=== PATIENT | female | born 1955 | race Caucasian/White ===

== ENCOUNTER 2018-04-04 09:09 | Inpatient (IN) | payer MEDICARE ==
[2018-04-04] MEDS ORDERED: NITROGLYCERIN-D5W PMX 50 MG in DEXTROSE/WATER 1 250ML.BAG IV STA (09:18)
[2018-04-04] MEDS ORDERED: FUROSEMIDE 10 MG/ML 4 ML VIAL IV STA (09:18)
[2018-04-04] MEDS ORDERED: NITROGLYCERIN SL TABS 0.4 MG TAB SUBLINGUAL STA (09:19)
--- NOTE | 2018-04-04 09:27 | ED ---
General Adult HPI - General Chief complaint: Shortness of Breath Stated complaint: SOB Source: patient, EMS Mode of arrival: EMS Limitations: no limitations - History of Present Illness Initial comments: Dictation was produced using Oculus360 dictation software. please excuse any grammatical, word or spelling errors. Chief Complaint: 62-year-old female presents via EMS for acute onset dyspnea. History of Present Illness: Patient is 62-year-old female who was at the [facility] today when she began experiencing acute shortness of breath. Patient has a past medical history of HPI. Patient is severely short of breath and is unable to provide detailed HPI at this time. She has history of congestive heart failure and CABG. Her rhic systems safety engineer she reports is Dr. Herrera. Patient has not been under hospital in the past. Aggressive medical history shows diabetes, dyslipidemia, hypertension, IA, heart failure. Pacer. EMS reports that patient was given 1 sublingual nitroglycerin started on noninvasive ventilation. She did report improvement with an IV. Patient denies any chest pain or pain symptoms. That she felt within normal limits early this morning. The ROS documented in this emergency department record has been reviewed and confirmed by me. Those systems with pertinent positive or negative responses have been documented in the HPI. All other systems are other negative and/or noncontributory. - Related Data Home Medications Medication Instructions Recorded Confirmed Carvedilol [Coreg] 12.5 mg PO BID 04/04/18 04/04/18 Digoxin [Lanoxin] 125 mcg PO DAILY 04/04/18 04/04/18 Furosemide [Lasix] 40 mg PO DAILY 04/04/18 04/04/18 Insulin Detemir [Levemir Flextouch] 76 units SQ HS 04/04/18 04/04/18 Insulin NPH Human Isophane 20 unit SQ AC-TID 04/04/18 04/04/18 [humuLIN N Kwikpen] Lisinopril [Zestril] 2.5 mg PO DAILY 04/04/18 04/04/18 Multivitamins, Thera [Multivitamin 1 tab PO DAILY 04/04/18 04/04/18 (formulary)] Kingsland-3 Fatty Acids [Kingsland-3] 1,000 mg PO BID 04/04/18 04/04/18 Potassium Chloride ER [K-Dur 20] 20 meq PO DAILY 04/04/18 04/04/18 Warfarin [Coumadin] 5 mg PO SUTUWEFRSA 04/04/18 04/04/18 Warfarin [Coumadin] 7.5 mg PO MOTH 04/04/18 04/04/18 Allergies Allergy/AdvReac Type Severity Reaction Status Date / Time metformin AdvReac Nausea & Verified 04/04/18 10:38 Vomiting & Diarrhea Pgcrzdp-Ger-Zpy Reductase AdvReac Unknown Verified 04/04/18 10:38 Inhibitor Review of Systems ROS Statement: Those systems with pertinent positive or pertinent negative responses have been documented in the HPI. ROS Other: All systems not noted in ROS Statement are negative. Past Medical History Past Medical History: Heart Failure, Diabetes Mellitus, Hyperlipidemia, Hypertension, Myocardial Infarction (IA) Additional Past Medical History / Comment(s): AICD History of Any Multi-Drug Resistant Organisms: None Reported Past Surgical History: AICD, Coronary Bypass/CABG Past Psychological History: No Psychological Hx Reported Smoking Status: Former smoker Past Alcohol Use History: None Reported Past Drug Use History: None Reported General Exam - General Exam Comments Initial Comments: PHYSICAL EXAM: General Impression: Alert and oriented x3, distress secondary to dyspnea HEENT: Normocephalic atraumatic, extra-ocular movements intact, pupils equal and reactive to light bilaterally, mucous membranes moist. Cardiovascular: Heart regular rate and rhythm, S1&S2 audible, no murmurs, rubs or gallops Chest: Bilateral lung crackles Abdomen: Bowel sounds present, abdomen soft, non-tender, non-distended, no organomegaly Musculoskeletal: Pulses present and equal in all extremities, 1+ pitting edema Motor: Power 5/5 bilaterally, no focal deficits noted Neurological: CN II-XII grossly intact, no focal motor or sensory deficits noted Skin: Intact with no visualized rashes Limitations: no limitations Course Vital Signs 04/04/18 04/04/18 04/04/18 09:11 09:23 09:35 Temperature 97.8 F Pulse Rate 108 H 90 Respiratory 26 H 20 Rate Blood Pressure 173/77 129/62 O2 Sat by Pulse 87 L 93 L Oximetry 04/04/18 04/04/18 09:39 10:00 Temperature Pulse Rate 82 Respiratory 22 16 Rate Blood Pressure 145/64 O2 Sat by Pulse 97 Oximetry Medical Decision Making - Medical Decision Making ED course: 62-year-old female with multiple cardiac comorbidities presents with acute onset dyspnea. Vital signs upon arrival shows heart rate of 108, respiratory rate of 26, 90% on BiPAP. Patient presents in severe acute respiratory distress. She is tolerating BiPAP. Click or presentation consistent with acute CHF exacerbation. EKG was obtained showing paced rhythm with ST depressions in the anterior precordial leads. There is high suspicion of sgarbossa criteria being met. No old EKG for comparison Discussed patient case with Dr. Page who is being faxed EKG. Patient given repeat sublingual nitroglycerin started on nitroglycerin drip. Discussed EKG and clinical presentation of patient with Dr. Page. He reviewed EKG and does not believe that EKG warrants Film Cutter activation at this time. Patient reevaluated after repeat sublingual nitroglycerin, several minutes of BiPAP and Lasix with improved respiratory status.CBC was obtained showing leukocytosis of 13.9 likely secondary to stress. INR is therapeutic at 2.5. Blood gases shows pH of 7.27 with a pCO2 of 52 with a bicarb of 23. Blood gas consistent with respiratory acidosis. Metabolic panel shows no anion gap. Glucose of 257. Cardiac enzymes are negative. She given aspirin, 40 mg of Lasix. Patient is reevaluated after several minutes on nitroglycerin drip. Patient medical status is dramatically improved. Trial of BiPAP was performed in the ER. Patient was observed in emergency department on BiPAP. She appears well. She is having full conversations and he will complete sentences. Patient still has some cracking to her lungs however she appears well. We will have patient admitted for gentle diuresis, blood pressure up to position the medical monitoring. Cardiology to be put on consult. EKG Interpretation: A 12 lead EKG was obtained. It was interpreted by myself and attending physician. There is a P wave before every QRS complex. Rate is 101. Rhythm is paced rhythm, QRS 1:30, QTc 552. There appears to be minimal ST depressions in anterior precordial leads especially in V2 there is some concern of sgarbossa criteria - Lab Data Result diagrams: 04/04/18 09:15 04/04/18 09:15 Lab Results 04/04/18 04/04/18 04/04/18 Range/Units 09:15 09:15 09:15 WBC 13.9 H (3.8-10.6) k/uL RBC 5.30 (3.80-5.40) m/uL Hgb 15.0 (11.4-16.0) gm/dL Hct 47.9 H (34.0-46.0) % MCV 90.4 (80.0-100.0) fL MCH 28.3 (25.0-35.0) pg MCHC 31.3 (31.0-37.0) g/dL RDW 13.9 (11.5-15.5) % Plt Count 279 (150-450) k/uL Neutrophils % (Manual) 40 % Band Neutrophils % 1 % Lymphocytes % (Manual) 48 % Monocytes % (Manual) 10 % Eosinophils % (Manual) 1 % Neutrophils # (Manual) 5.60 (1.3-7.7) k/uL Lymphocytes # (Manual) 6.67 H (1.0-4.8) k/uL Monocytes # (Manual) 1.39 H (0-1.0) k/uL Eosinophils # (Manual) 0.14 (0-0.7) k/uL Nucleated RBCs 0 (0-0) /100 WBC Toxic Granulation Present Poikilocytosis (manual Present Anisocytosis (manual) Present PT (9.0-12.0) sec INR (<1.2) APTT (22.0-30.0) sec D-Dimer (<0.60) mg/L FEU VBG pH (7.31-7.41) VBG pCO2 (37-51) mmHg VBG HCO3 (24-28) mmol/L Sodium 138 (137-145) mmol/L Potassium 4.5 (3.5-5.1) mmol/L Chloride 102 (98-107) mmol/L Carbon Dioxide 20 L (22-30) mmol/L Anion Gap 16 mmol/L BUN 17 (7-17) mg/dL Creatinine 0.97 (0.52-1.04) mg/dL Est GFR (CKD-EPI)AfAm 72 (>60 ml/min/1.73 sqM) Est GFR (CKD-EPI)NonAf 62 (>60 ml/min/1.73 sqM) Glucose 257 H (74-99) mg/dL Calcium 9.4 (8.4-10.2) mg/dL Magnesium 1.8 (1.6-2.3) mg/dL Total Bilirubin 0.6 (0.2-1.3) mg/dL AST 43 H (14-36) U/L ALT 43 (9-52) U/L Alkaline Phosphatase 115 (38-126) U/L Total Creatine Kinase 173 H (30-135) U/L CK-MB (CK-2) 3.2 H* (0.0-2.4) ng/mL CK-MB (CK-2) Rel Index 1.8 Troponin I 0.014 (0.000-0.034) ng/mL NT-Pro-B Natriuret Pep pg/mL Total Protein 7.8 (6.3-8.2) g/dL Albumin 4.2 (3.5-5.0) g/dL 04/04/18 04/04/18 04/04/18 Range/Units 09:15 09:15 09:15 WBC (3.8-10.6) k/uL RBC (3.80-5.40) m/uL Hgb (11.4-16.0) gm/dL Hct (34.0-46.0) % MCV (80.0-100.0) fL MCH (25.0-35.0) pg MCHC (31.0-37.0) g/dL RDW (11.5-15.5) % Plt Count (150-450) k/uL Neutrophils % (Manual) % Band Neutrophils % % Lymphocytes % (Manual) % Monocytes % (Manual) % Eosinophils % (Manual) % Neutrophils # (Manual) (1.3-7.7) k/uL Lymphocytes # (Manual) (1.0-4.8) k/uL Monocytes # (Manual) (0-1.0) k/uL Eosinophils # (Manual) (0-0.7) k/uL Nucleated RBCs (0-0) /100 WBC Toxic Granulation Poikilocytosis (manual Anisocytosis (manual) PT 22.8 H (9.0-12.0) sec INR 2.5 H (<1.2) APTT 31.9 H (22.0-30.0) sec D-Dimer (<0.60) mg/L FEU VBG pH 7.27 L (7.31-7.41) VBG pCO2 52 H (37-51) mmHg VBG HCO3 23 L (24-28) mmol/L Sodium (137-145) mmol/L Potassium (3.5-5.1) mmol/L Chloride (98-107) mmol/L Carbon Dioxide (22-30) mmol/L Anion Gap mmol/L BUN (7-17) mg/dL Creatinine (0.52-1.04) mg/dL Est GFR (CKD-EPI)AfAm (>60 ml/min/1.73 sqM) Est GFR (CKD-EPI)NonAf (>60 ml/min/1.73 sqM) Glucose (74-99) mg/dL Calcium (8.4-10.2) mg/dL Magnesium (1.6-2.3) mg/dL Total Bilirubin (0.2-1.3) mg/dL AST (14-36) U/L ALT (9-52) U/L Alkaline Phosphatase (38-126) U/L Total Creatine Kinase (30-135) U/L CK-MB (CK-2) (0.0-2.4) ng/mL CK-MB (CK-2) Rel Index Troponin I (0.000-0.034) ng/mL NT-Pro-B Natriuret Pep 448 pg/mL Total Protein (6.3-8.2) g/dL Albumin (3.5-5.0) g/dL 04/04/18 Range/Units 09:15 WBC (3.8-10.6) k/uL RBC (3.80-5.40) m/uL Hgb (11.4-16.0) gm/dL Hct (34.0-46.0) % MCV (80.0-100.0) fL MCH (25.0-35.0) pg MCHC (31.0-37.0) g/dL RDW (11.5-15.5) % Plt Count (150-450) k/uL Neutrophils % (Manual) % Band Neutrophils % % Lymphocytes % (Manual) % Monocytes % (Manual) % Eosinophils % (Manual) % Neutrophils # (Manual) (1.3-7.7) k/uL Lymphocytes # (Manual) (1.0-4.8) k/uL Monocytes # (Manual) (0-1.0) k/uL Eosinophils # (Manual) (0-0.7) k/uL Nucleated RBCs (0-0) /100 WBC Toxic Granulation Poikilocytosis (manual Anisocytosis (manual) PT (9.0-12.0) sec INR (<1.2) APTT (22.0-30.0) sec D-Dimer 0.56 (<0.60) mg/L FEU VBG pH (7.31-7.41) VBG pCO2 (37-51) mmHg VBG HCO3 (24-28) mmol/L Sodium (137-145) mmol/L Potassium (3.5-5.1) mmol/L Chloride (98-107) mmol/L Carbon Dioxide (22-30) mmol/L Anion Gap mmol/L BUN (7-17) mg/dL Creatinine (0.52-1.04) mg/dL Est GFR (CKD-EPI)AfAm (>60 ml/min/1.73 sqM) Est GFR (CKD-EPI)NonAf (>60 ml/min/1.73 sqM) Glucose (74-99) mg/dL Calcium (8.4-10.2) mg/dL Magnesium (1.6-2.3) mg/dL Total Bilirubin (0.2-1.3) mg/dL AST (14-36) U/L ALT (9-52) U/L Alkaline Phosphatase (38-126) U/L Total Creatine Kinase (30-135) U/L CK-MB (CK-2) (0.0-2.4) ng/mL CK-MB (CK-2) Rel Index Troponin I (0.000-0.034) ng/mL NT-Pro-B Natriuret Pep pg/mL Total Protein (6.3-8.2) g/dL Albumin (3.5-5.0) g/dL Disposition Clinical Impression: Congestive heart failure Disposition: ADMITTED IP TO THIS HOSP Condition: Good Referrals: None,Stated [Primary Care Provider] - 1-2 days Decision Time: 11:10
[2018-04-04 09:34] LABS: VBG PH 7.27 (7.31-7.41)
[2018-04-04 09:42] LABS: INR 2.5 (<1.2); Partial Thromboplastin Time 31.9 sec (22.0-30.0); Prothrombin Time 22.8 sec (9.0-12.0)
[2018-04-04 09:45] LABS: Albumin 4.2 g/dL (3.5-5.0); Calcium 9.4 mg/dL (8.4-10.2); Magnesium 1.8 mg/dL (1.6-2.3); Potassium 4.5 mmol/L (3.5-5.1); Total Bilirubin 0.6 mg/dL (0.2-1.3); Total Protein 7.8 g/dL (6.3-8.2)
[2018-04-04 09:57] LABS: HCT 47.9 % (34.0-46.0); MCH 28.3 pg (25.0-35.0); MCHC 31.3 g/dL (31.0-37.0); MCV 90.4 fL (80.0-100.0); Mean Platelet Volume 8.1; Platelet Count 279 k/uL (150-450); RDW 13.9 % (11.5-15.5); WBC 13.9 k/uL (3.8-10.6)
--- NOTE | 2018-04-04 10:14 | XR ---
EXAMINATION TYPE: XR chest 1V portable DATE OF EXAM: 04/04/2018 HISTORY: Shortness of breath. COMPARISON: None. TECHNIQUE: Single view of the chest is submitted. FINDINGS: Demonstrated are scattered senescent parenchymal change. There is no evidence for focal infiltrate. The heart is stable. Dual-lead pacer is in place. Hilar and mediastinal structures are within normal limits. Degenerative changes are seen of the dorsal spine. IMPRESSION: 1. Chronic changes without evidence for acute pulmonary disease.
[2018-04-04 10:15] LABS: Troponin I 0.014 ng/mL (0.000-0.034)
[2018-04-04 10:17] LABS: Creatine Kinase MB 3.2 ng/mL (0.0-2.4)
[2018-04-04 10:37] LABS: Band Neutrophils % 1 %; Eosinophils # (M) 0.14 k/uL (0-0.7); Lymphocytes # (M) 6.67 k/uL (1.0-4.8); Monocytes # (M) 1.39 k/uL (0-1.0); Neutrophils % (M) 40 %; Nucleated Red Blood Cells 0 /100 WBC (0-0); Total Cells Counted 100
[2018-04-04 10:38] LABS: Toxic Granulation Present
[2018-04-04 10:39] LABS: Anisocytosis (M) Present; Poikilocytosis (M) Present
[2018-04-04] MEDS ORDERED: NITROGLYCERIN OINT 1 INCH/GM PACKET TOPICAL STA (10:51)
[2018-04-04] MEDS ORDERED: NALOXONE 0.4 MG/ML 1 ML VIAL IV PRN (11:10)
--- NOTE | 2018-04-04 11:34 | P.HPIM ---
History of Present Illness H&P Date: 04/04/18 Chief Complaint: Shortness of breath The patient is a 62-year-old female with a past medical history of congestive heart failure of unknown type, flash pulmonary edema, CO, type 2 diabetes, pacer who presents to the ER via EMS with chief complaint of shortness of air. 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 Apparently on arrival the patient was in respiratory distress with a significantly elevated blood pressure systolically over 200 with reported borderline saturations in the upper 80s to low 90s. She was placed on BiPAP and given nitroglycerin on route. The patient denied any chest pain, diaphoresis nausea or vomiting, or lower extremity swelling. She denied any recent illness, fevers chills or night sweats. Reports her last hospitalization over 18 months ago. Reports that she has had flash pulmonary edema previously and has been on nitro drip and in the ICU. She usually goes to [facility]. In the ER the patient was noted to have elevated blood pressure systolically in the 170s, she was also noted to be hypoxic on room air at 87% and was continued on BiPAP with good saturations. She was given a dose of Lasix and started on a nitroglycerin drip. Chest x-ray showed no acute cardiopulmonary etiology, BNP was mildly elevated 448 and d-dimer was negative at 0.56. Troponins were negative and EKG showed a paced rhythm with some minimal ST depression in anterior precordial leads. ABG pH of 7.27 with a pCO2 of 52 with a bicarb of 23. Leukocytosis of 14, INR 2.5 Review of Systems Pertinent positives and negatives as discussed in HPI, complete review of systems was performed and all other systems are negative Past Medical History Past Medical History: Heart Failure, Diabetes Mellitus, Hyperlipidemia, Hypertension, Myocardial Infarction (CO) Additional Past Medical History / Comment(s): AICD History of Any Multi-Drug Resistant Organisms: None Reported Past Surgical History: AICD, Coronary Bypass/CABG Past Psychological History: No Psychological Hx Reported Smoking Status: Former smoker Past Alcohol Use History: None Reported Past Drug Use History: None Reported Medications and Allergies Home Medications Medication Instructions Recorded Confirmed Type Carvedilol [Coreg] 12.5 mg PO BID 04/04/18 04/04/18 History Digoxin [Lanoxin] 125 mcg PO DAILY 04/04/18 04/04/18 History Furosemide [Lasix] 40 mg PO DAILY 04/04/18 04/04/18 History Insulin Detemir [Levemir Flextouch] 76 units SQ HS 04/04/18 04/04/18 History Insulin NPH Human Isophane 20 unit SQ AC-TID 04/04/18 04/04/18 History [humuLIN N Kwikpen] Lisinopril [Zestril] 2.5 mg PO DAILY 04/04/18 04/04/18 History Multivitamins, Thera [Multivitamin 1 tab PO DAILY 04/04/18 04/04/18 History (formulary)] Pride-3 Fatty Acids [Pride-3] 1,000 mg PO BID 04/04/18 04/04/18 History Potassium Chloride ER [K-Dur 20] 20 meq PO DAILY 04/04/18 04/04/18 History Warfarin [Coumadin] 5 mg PO SUTUWEFRSA 04/04/18 04/04/18 History Warfarin [Coumadin] 7.5 mg PO MOTH 04/04/18 04/04/18 History Allergies Allergy/AdvReac Type Severity Reaction Status Date / Time metformin AdvReac Nausea & Verified 04/04/18 10:38 Vomiting & Diarrhea Umglqbh-Lbg-Shl Reductase AdvReac Unknown Verified 04/04/18 10:38 Inhibitor Physical Exam Vitals: Vital Signs Temp Pulse Resp BP Pulse Ox 04/04/18 10:00 82 16 145/64 97 04/04/18 09:39 22 04/04/18 09:35 90 20 129/62 93 L 04/04/18 09:23 97.8 F 04/04/18 09:11 108 H 26 H 173/77 87 L Intake and Output 04/03/18 04/04/18 04/04/18 22:59 06:59 14:59 Other: Weight 81.647 kg Constitutional: No acute distress, conversant, pleasant Eyes: Anicteric sclerae, moist conjunctiva, no lid-lag, PERRLA ENMT: NC/AT,Oropharynx clear, no erythema, exudates Neck:Supple, FROM, no masses, or JVD, No carotid bruits; No thyromegaly Lungs: Clear to auscultation, Clear to percussion, Normal respiratory effort, no accessory muscle use Cardiovascular: Heart regular in rate and rhythm, No murmurs, gallops, or rubs no peripheral edema Abdominal: Soft Nontender, nom distended, no guarding, no rebound or rigidity, Normoactive bowel sounds No hepatomegaly, No splenomegaly, No palpable mass No abdominal wall hernia noted Skin: Normal temperature, tone, texture, turgor, No induration No subcutaneous nodules, No rash, lesions, No ulcers Extremities:No digital cyanosis No clubbing, Pedal pulses intact and symmetrical Radial pulses intact and symmetrical Normal gait and station, No calf tenderness Psychiatric: Alert and oriented to person, place and time, Appropriate affect Intact judgement Neuro: Muscles Strength 5/5 in all 4 extremities, Sensation to light touch grossly present throughout, Cranial nerves II-XII grossly intact. No focal sensory deficits Results CBC & Chem 7: 04/04/18 09:15 04/04/18 09:15 Labs: Abnormal Lab Results - Last 24 Hours (Table) 04/04/18 04/04/18 04/04/18 Range/Units 09:15 09:15 09:15 WBC 13.9 H (3.8-10.6) k/uL Hct 47.9 H (34.0-46.0) % Lymphocytes # (Manual) 6.67 H (1.0-4.8) k/uL Monocytes # (Manual) 1.39 H (0-1.0) k/uL PT (9.0-12.0) sec INR (<1.2) APTT (22.0-30.0) sec VBG pH (7.31-7.41) VBG pCO2 (37-51) mmHg VBG HCO3 (24-28) mmol/L Carbon Dioxide 20 L (22-30) mmol/L Glucose 257 H (74-99) mg/dL AST 43 H (14-36) U/L Total Creatine Kinase 173 H (30-135) U/L CK-MB (CK-2) 3.2 H* (0.0-2.4) ng/mL 04/04/18 04/04/18 Range/Units 09:15 09:15 WBC (3.8-10.6) k/uL Hct (34.0-46.0) % Lymphocytes # (Manual) (1.0-4.8) k/uL Monocytes # (Manual) (0-1.0) k/uL PT 22.8 H (9.0-12.0) sec INR 2.5 H (<1.2) APTT 31.9 H (22.0-30.0) sec VBG pH 7.27 L (7.31-7.41) VBG pCO2 52 H (37-51) mmHg VBG HCO3 23 L (24-28) mmol/L Carbon Dioxide (22-30) mmol/L Glucose (74-99) mg/dL AST (14-36) U/L Total Creatine Kinase (30-135) U/L CK-MB (CK-2) (0.0-2.4) ng/mL Assessment and Plan (1) Acute respiratory failure with hypoxia Current Visit: Yes Status: Acute Code(s): J96.01 - ACUTE RESPIRATORY FAILURE WITH HYPOXIA SNOMED Code(s): 56342394 (2) Hypertensive emergency Current Visit: Yes Status: Acute Code(s): I16.1 - HYPERTENSIVE EMERGENCY SNOMED Code(s): 351169497543139 (3) CHF exacerbation Current Visit: Yes Status: Acute Code(s): I50.9 - HEART FAILURE, UNSPECIFIED SNOMED Code(s): 46352162 (4) Type 2 diabetes mellitus with hyperglycemia Current Visit: Yes Status: Acute Code(s): E11.65 - TYPE 2 DIABETES MELLITUS WITH HYPERGLYCEMIA SNOMED Code(s): 972555234409283 (5) Leukocytosis Current Visit: Yes Status: Acute Code(s): D72.829 - ELEVATED WHITE BLOOD CELL COUNT, UNSPECIFIED SNOMED Code(s): 682804099 (6) Hyperlipidemia Current Visit: Yes Status: Acute Code(s): E78.5 - HYPERLIPIDEMIA, UNSPECIFIED SNOMED Code(s): 69934493 Plan: The patient is admitted anticipated greater than 2 midnight stay with acute respiratory failure with hypoxia, hypertensive emergency with concern for impending CHF exacerbation unknown type after presenting with acute dyspnea and hypoxia. She was started on nitroglycerin drip blood pressures are now as much improved we'll try to wean her off and transition her to oral antihypertensive regimen. Her respiratory status is also improved we'll attempt to wean her off BiPAP as she is transitioned to selective unit. The patient is afebrile but does have a leukocytosis we'll attempt to get urinalysis, blood culture, we'll hold off on antibiotics at this time and monitor closely. We'll resume her home Lasix, coreg, digoxin and Coumadin regimen, insulin regimen with Accu- Cheks and correctional scale coverage. Will check echocardiogram consult cardiology for further recommendations and continue to follow her clinical course CODE STATUS Full code Medical decision maker : self/ Discussed with patient/ and son Anticipate discharge to home in 1-2 days
[2018-04-04 12:03] LABS: Appearance,Urine Clear (Clear); Bilirubin,Urine Negative (Negative); Blood,Urine Negative (Negative); Color,Urine Light Yellow; Glucose,Urine (UA) Negative (Negative); Ketones,Urine Negative (Negative); Leukocyte Esterase,Urine Negative (Negative); Nitrite,Urine Negative (Negative); PH, Urine 5.5 (5.0-8.0); Protein,Urine Trace (Negative); Specific Gravity,Urine 1.005 (1.001-1.035); Urobilinogen,Urine <2.0 mg/dL (<2.0)
[2018-04-04 12:54] LABS: Glucose,Whole Blood 185 mg/dL (75-99)
[2018-04-04] MEDS: INSULIN ASPART 100 UNIT/ML 1 ML 10 ML VIAL SQ SCH ×3 (13:21→21:23)
[2018-04-04] MEDS: INSULIN NPH 300 UNIT/3 ML VIAL SQ SCH ×2 (13:22→17:12)
--- NOTE | 2018-04-04 15:30 | P.CRDCN ---
History of Present Illness Consult date: 04/04/18 History of present illness: This is a 62-year-old female with history of ischemic heart disease with previous bypass surgery, probable cardiomyopathy with history of biventricular pacemaker implantation with a defibrillator, who came to [place] to the [facility] on jury duty. Apparently patient became short of breath and went to sit in the library. This shortness of breath did not improve and patient called paramedics and came to the hospital. Patient was extremely short of breath on arrival. Chest x-ray showed some chronic changes. Her BNP is not elevated. However, patient responded well to IV Lasix. Patient blood pressure was also very high. IV nitroglycerin dropped her blood pressure to normal range. Currently, patient is off nitroglycerin. She seemed to be comfortable, sleeping flat in bed. No evidence of JVD. Lungs appeared to be clear. Patient is slightly tachycardic. EKG showed evidence of biventricular pacemaker rhythm. We'll continue current medical therapy. Echocardiogram is done. We'll also follow Cardec enzymes studies Review of Systems As per the chart Past Medical History Past Medical History: Atrial Fibrillation, Heart Failure, Diabetes Mellitus, Hyperlipidemia, Hypertension, Myocardial Infarction ([place]), Osteoarthritis (OA) Additional Past Medical History / Comment(s): Cardiomyopathy with AICD/pacer, inferior wall [place] in 2007-no chest pain-felt very tired, paroxysmal Afib, IDDM type II, diabetic neuropathy bilateral feet, arthritis bilateral hands/fingers/ wrists and R hip, past L patellar fracture, past R wrist fracture. Last Myocardial Infarction Date:: 2007 History of Any Multi-Drug Resistant Organisms: None Reported Past Surgical History: AICD, Coronary Bypass/CABG, Heart Catheterization, Orthopedic Surgery, Tubal Ligation Additional Past Surgical History / Comment(s): AICD/pacer x [address] 03/08/16 [facility], 2010 CABG done at [facility], colonoscopy, R wrist fracture realignment, bilateral cataract removals/lens implants. Past Anesthesia/Blood Transfusion Reactions: No Reported Reaction Type of Cardiac Device: Permanent Pacemaker, AICD Device Placement Date:: 03/08/16 Smoking Status: Former smoker - Past Family History Father Additional Family Medical History / Comment(s): Father in his 80s and pt thinks it was from heart problems. Mother Family Medical History: Osteoarthritis (OA) Additional Family Medical History / Comment(s): Mother has arthritis. She is in her 80s. Medications and Allergies Home Medications Medication Instructions Recorded Confirmed Type Carvedilol [Coreg] 12.5 mg PO BID 04/04/18 04/04/18 History Digoxin [Lanoxin] 125 mcg PO DAILY 04/04/18 04/04/18 History Furosemide [Lasix] 40 mg PO DAILY 04/04/18 04/04/18 History Insulin Detemir [Levemir Flextouch] 76 units SQ HS 04/04/18 04/04/18 History Insulin NPH Human Isophane 20 unit SQ AC-TID 04/04/18 04/04/18 History [humuLIN N Kwikpen] Lisinopril [Zestril] 2.5 mg PO DAILY 04/04/18 04/04/18 History Multivitamins, Thera [Multivitamin 1 tab PO DAILY 04/04/18 04/04/18 History (formulary)] Marcola-3 Fatty Acids [Marcola-3] 1,000 mg PO BID 04/04/18 04/04/18 History Potassium Chloride ER [K-Dur 20] 20 meq PO DAILY 04/04/18 04/04/18 History Warfarin [Coumadin] 5 mg PO SUTUWEFRSA 04/04/18 04/04/18 History Warfarin [Coumadin] 7.5 mg PO MOTH 04/04/18 04/04/18 History Allergies Allergy/AdvReac Type Severity Reaction Status Date / Time metformin AdvReac Nausea & Verified 04/04/18 10:38 Vomiting & Diarrhea Mbbnogt-Uim-Bwt Reductase AdvReac Unknown Verified 04/04/18 10:38 Inhibitor Physical Exam Vitals: Vital Signs Temp Pulse Resp BP Pulse Ox 04/04/18 11:57 97 F L 85 18 162/71 95 04/04/18 10:00 82 16 145/64 97 04/04/18 09:39 22 04/04/18 09:35 90 20 129/62 93 L 04/04/18 09:23 97.8 F 04/04/18 09:11 108 H 26 H 173/77 87 L Intake and Output 04/04/18 04/04/18 04/04/18 06:59 14:59 22:59 Intake Total 200 Output Total 200 Balance 0 Intake: Oral 200 Output: Urine 200 Other: # Voids 1 Weight 81.647 kg GENERAL EXAM: Patient is alert and oriented and doesn't appear to be in any acute distress HEENT: Normocephalic. Normal reaction of pupils, equal size, normal range of extraocular motion. No erythema or exudates in the throat. NECK: No masses, no nuchal rigidity. CHEST: No chest wall deformity. LUNGS: Equal air entry with no crackles or wheeze. HEART: S1 and S2 normal with no audible mumurs or gallops. Regular rhythm, femorals equal on both sides.. ABDOMEN: No hepatosplenomegaly, normal bowel sounds, no guarding or rigidity. SKIN: No rashes CENTRAL NERVOUS SYSTEM: No focal deficits. EXTREMITIES: No cyanosis, clubbing or edema. Results 04/04/18 09:15 04/04/18 09:15 Cardiac Enzymes 04/04/18 04/04/18 Range/Units 09:15 09:15 AST 43 H (14-36) U/L CK-MB (CK-2) 3.2 H* (0.0-2.4) ng/mL Troponin I 0.014 (0.000-0.034) ng/mL Coagulation 04/04/18 Range/Units 09:15 PT 22.8 H (9.0-12.0) sec APTT 31.9 H (22.0-30.0) sec CBC 04/04/18 Range/Units 09:15 WBC 13.9 H (3.8-10.6) k/uL RBC 5.30 (3.80-5.40) m/uL Hgb 15.0 (11.4-16.0) gm/dL Hct 47.9 H (34.0-46.0) % Plt Count 279 (150-450) k/uL Comprehensive Metabolic Panel 04/04/18 Range/Units 09:15 Sodium 138 (137-145) mmol/L Potassium 4.5 (3.5-5.1) mmol/L Chloride 102 (98-107) mmol/L Carbon Dioxide 20 L (22-30) mmol/L BUN 17 (7-17) mg/dL Creatinine 0.97 (0.52-1.04) mg/dL Glucose 257 H (74-99) mg/dL Calcium 9.4 (8.4-10.2) mg/dL AST 43 H (14-36) U/L ALT 43 (9-52) U/L Alkaline Phosphatase 115 (38-126) U/L Total Protein 7.8 (6.3-8.2) g/dL Albumin 4.2 (3.5-5.0) g/dL Current Medications Generic Name Dose Route Start Last Admin Trade Name Freq PRN Reason Stop Dose Admin Aspirin 325 mg 04/05/18 09:00 Aspirin PO DAILY [facility] Carvedilol 12.5 mg 04/04/18 17:30 Coreg PO BID-W/MEALS [facility] Digoxin 125 mcg 04/05/18 09:00 Lanoxin PO DAILY [facility] Furosemide 40 mg 04/05/18 09:00 Lasix PO DAILY [facility] Insulin Aspart 0 unit 04/04/18 12:30 04/04/18 13:21 Novolog SQ 2 unit ACHS [facility] Administration Protocol Insulin Detemir 76 unit 04/04/18 21:00 Levemir SQ HS [facility] Insulin Human NPH 20 unit 04/04/18 12:30 04/04/18 13:22 Humulin N SQ 20 unit AC-TID [facility] Administration Lisinopril 2.5 mg 04/05/18 09:00 Zestril PO DAILY [facility] Multivitamins 1 each 04/05/18 12:00 Theragran PO 1200 [facility] Naloxone HCl 0.2 mg 04/04/18 11:10 Narcan IV Q2M PRN Opioid Reversal Potassium Chloride 20 meq 04/05/18 09:00 K-Dur 20 PO DAILY [facility] Warfarin Sodium 5 mg 04/05/18 18:00 Coumadin PO [email or web address] [facility] Warfarin Sodium 7.5 mg 04/04/18 18:00 Coumadin PO [email or web address] [facility] Intake and Output 04/04/18 04/04/18 04/04/18 06:59 14:59 22:59 Intake Total 200 Output Total 200 Balance 0 Intake: Oral 200 Output: Urine 200 Other: # Voids 1 Weight 81.647 kg Patient Weight 04/05/18 06:59 Weight 81.647 kg 04/04/18 09:15 04/04/18 09:15 EKG Interpretations (text) Pacemaker rhythm, appears to be biventricular pacemaker Assessment and Plan (1) Shortness of breath Current Visit: Yes Status: Acute Code(s): R06.02 - SHORTNESS OF BREATH SNOMED Code(s): 654059987 (2) CHF exacerbation Current Visit: Yes Status: Acute Code(s): I50.9 - HEART FAILURE, UNSPECIFIED SNOMED Code(s): 47822348 (3) Hyperlipidemia Current Visit: Yes Status: Acute Code(s): E78.5 - HYPERLIPIDEMIA, UNSPECIFIED SNOMED Code(s): 42819772 (4) Hypertensive emergency Current Visit: Yes Status: Acute Code(s): I16.1 - HYPERTENSIVE EMERGENCY SNOMED Code(s): 367362945982515 (5) Ischemic heart disease Current Visit: Yes Status: Acute Code(s): I25.9 - CHRONIC ISCHEMIC HEART DISEASE, UNSPECIFIED SNOMED Code(s): 723822937 (6) Cardiomyopathy Current Visit: Yes Status: Acute Code(s): I42.9 - CARDIOMYOPATHY, UNSPECIFIED SNOMED Code(s): 28568296 (7) History of atrial fibrillation Current Visit: Yes Status: Acute Code(s): Z86.79 - PERSONAL HISTORY OF OTHER DISEASES OF THE CIRCULATORY SYSTEM SNOMED Code(s): 972858086 (8) Presence of biventricular AICD Current Visit: Yes Status: Acute Code(s): Z95.810 - PRESENCE OF AUTOMATIC ( IMPLANTABLE) CARDIAC DEFIBRILLATOR SNOMED Code(s): 851445386 (9) Acute on chronic systolic (congestive) heart failure Current Visit: Yes Status: Acute Code(s): I50.23 - ACUTE ON CHRONIC SYSTOLIC (CONGESTIVE) HEART FAILURE SNOMED Code(s): 439136400 Plan: Continue current medical therapy. Echocardiogram. Follow cardiac enzymes studies. If stable, patient may be able to discharge within next 24-48 hours
[2018-04-04 16:18] LABS: Creatine Kinase MB 3.5 ng/mL (0.0-2.4); Troponin I 0.05 ng/mL (0.000-0.034)
[2018-04-04 16:59] LABS: Glucose,Whole Blood 223 mg/dL (75-99)
[2018-04-04] MEDS: CARVEDILOL 12.5 MG TAB PO SCH (17:11)
[2018-04-04] MEDS ORDERED: WARFARIN 7.5 MG TAB PO SCH (18:00)
[2018-04-04] MEDS ORDERED: NON-FORMULARY DRUG (Omega-3 Fatty Acids [Omega-3] 1,000 MG) PO SCH (21:00)
[2018-04-04 21:06] LABS: Glucose,Whole Blood 228 mg/dL (75-99)
[2018-04-04] MEDS: INSULIN DETEMIR 100 UNIT/ML 10 ML VIAL SQ SCH (21:24)
[2018-04-04 22:13] LABS: Creatine Kinase MB 3.1 ng/mL (0.0-2.4); Troponin I 0.059 ng/mL (0.000-0.034)
[2018-04-05 06:13] LABS: Glucose,Whole Blood 82 mg/dL (75-99)
[2018-04-05] MEDS: INSULIN ASPART 100 UNIT/ML 1 ML 10 ML VIAL SQ SCH ×4 (06:20→21:08)
[2018-04-05 06:27] LABS: Basophils # (A) 0.1 k/uL (0-0.2); Basophils % (A) 1 %; Eosinophils # (A) 0.2 k/uL (0-0.7); Eosinophils % (A) 3 %; HCT 40.4 % (34.0-46.0); HGB 12.9 gm/dL (11.4-16.0); Lymphocytes # (A) 3.5 k/uL (1.0-4.8); Lymphocytes % (A) 39 %; MCH 28.3 pg (25.0-35.0); MCV 88.3 fL (80.0-100.0); Mean Platelet Volume 7.4; Monocytes # (A) 0.6 k/uL (0-1.0); Monocytes % (A) 6 %; Neutrophils # (A) 4.4 k/uL (1.3-7.7); Neutrophils % (A) 48 %; Platelet Count 206 k/uL (150-450); RBC 4.57 m/uL (3.80-5.40); RDW 13.8 % (11.5-15.5)
[2018-04-05 07:02] LABS: Calcium 9.3 mg/dL (8.4-10.2); Potassium 3.8 mmol/L (3.5-5.1)
[2018-04-05] MEDS: CARVEDILOL 12.5 MG TAB PO SCH ×2 (08:41→17:35)
[2018-04-05] MEDS: ASPIRIN 325 MG TAB PO SCH (08:41)
[2018-04-05] MEDS: MULTIVITAMINS, THERA 1 EACH TAB PO SCH (08:42)
[2018-04-05] MEDS: FUROSEMIDE 40 MG TAB PO SCH (08:42)
[2018-04-05] MEDS: LISINOPRIL 2.5 MG TAB PO SCH (08:42)
[2018-04-05] MEDS: POTASSIUM CHLORIDE ER 20 MEQ TAB.ER PO SCH (08:42)
[2018-04-05] MEDS: DIGOXIN 125 MCG TAB PO SCH (08:42)
--- NOTE | 2018-04-05 08:53 | ECHOF ---
Referral Reason:CHF MEASUREMENTS -------- HEIGHT: 152.4 cm WEIGHT: 81.7 kg BP: IVSd: 1.1 cm (0.6 - 1.1) LVIDd: 5.6 cm (3.9 - 5.3) LVPWd: 1.5 cm (0.6 - 1.1) IVSs: 1.4 cm LVIDs: 4.6 cm LVPWs: 1.5 cm LAESV Index (A-L): 34.10 ml/m Ao Diam: 2.3 cm (2.0 - 3.7) AV Cusp: 1.7 cm (1.5 - 2.6) LA Diam: 3.7 cm (2.7 - 3.8) MV E Mathew: 1.13 m/s MV DecT: 152 ms MV A Mathew: 0.87 m/s MV E/A Ratio: 1.29 AR PHT: 439 ms RAP: 5.00 mmHg RVSP: 37.16 mmHg FINDINGS -------- Paced rhythm. This was a techncally difficult study with suboptimal views, , Lumason utilized for enhancement of im ages. The left ventricular size is normal. There is borderline concentric left ventricular hypertrophy. Overall left ventricular systolic function is severely impaired with, an EF between 25 - 30 %. Bas al lateral LV wall motion is akinetic. Basal posterior LV wall motion is akinetic. Basal inferi or LV wall motion is akinetic. Basal inferoseptal LV wall motion is akinetic. Mid lateral LV wa ll motion is akinetic. Mid posterior LV wall motion is akinetic. Mid inferior LV wall motion is akinetic. Mid inferoseptal LV wall motion is akinetic. Apical inferior LV wall motion is akine tic. Apical septum LV wall motion is akinetic. The right ventricle is normal in size. LA is midly dilated 29-33ml/m2. The right atrial size is normal. 5.0mg OF Lumason UTLIZED: 2 OR MORE WALL SEGMENTS NOT VISUALIZED. There is mild aortic valve sclerosis. There is mild aortic regurgitation. Mild mitral annular calcification present. Mild mitral regurgitation is present. Mild tricuspid regurgitation present. There is mild pulmonary hypertension. The right ventricular systolic pressure, as measured by Doppler, is 37.16mmHg. Trace/mild (physiologic) pulmonic regurgitation. The aortic root size is normal. There is no pericardial effusion. CONCLUSIONS -------- 1. This was a techncally difficult study with suboptimal views, , Lumason utilized for enhancement of images. 2. The left ventricular size is normal. 3. There is borderline concentric left ventricular hypertrophy. 4. Overall left ventricular systolic function is severely impaired with, an EF between 25 - 30 %. 5. Basal lateral LV wall motion is akinetic. 6. Basal posterior LV wall motion is akinetic. 7. Basal inferior LV wall motion is akinetic. 8. Basal inferoseptal LV wall motion is akinetic. 9. Mid lateral LV wall motion is akinetic. 10. Mid posterior LV wall motion is akinetic. 11. Mid inferior LV wall motion is akinetic. 12. Mid inferoseptal LV wall motion is akinetic. 13. Apical inferior LV wall motion is akinetic. 14. Apical septum LV wall motion is akinetic. 15. LA is midly dilated 29-33ml/m2. 16. 5.0mg OF Lumason UTLIZED: 2 OR MORE WALL SEGMENTS NOT VISUALIZED. 17. There is mild aortic valve sclerosis. 18. There is mild aortic regurgitation. 19. Mild mitral annular calcification present. 20. Mild mitral regurgitation is present. 21. Mild tricuspid regurgitation present. 22. There is mild pulmonary hypertension. 23. Trace/mild (physiologic) pulmonic regurgitation. 24. The aortic root size is normal. 25. There is no pericardial effusion. SHIFT SUPERVISOR RN: Veronica Rodriguez RDCS
[2018-04-05] MEDS: INSULIN NPH 300 UNIT/3 ML VIAL SQ SCH ×3 (10:53→17:36)
[2018-04-05 11:47] LABS: Glucose,Whole Blood 242 mg/dL (75-99)
--- NOTE | 2018-04-05 13:54 | P.PN ---
Subjective Progress Note Date: 04/05/18 Patient feeling much better today has been chest pain-free since admission. Reports her shortness of breath is improved, currently doing good, oxygen saturations on room air. Has been up and ambulatory. She did have elevation of her troponin as high as 0.059. Echocardiogram confirming cardiomyopathy likely ischemic with ejection fraction of 25-30%. Otherwise no acute events overnight Objective - Vital Signs Vital signs: Vital Signs Temp 97.3 F L 04/05/18 08:00 Pulse 80 04/05/18 08:00 Resp 18 04/05/18 08:00 BP 120/59 04/05/18 08:00 Pulse Ox 92 L 04/05/18 08:00 Intake & Output 04/04/18 04/05/18 04/05/18 18:59 06:59 18:59 Intake Total 200 550 180 Output Total 200 Balance 0 550 180 Weight 81.647 kg 79.5 kg Intake: Oral 200 550 180 Output: Urine 200 Other: Voiding Method Toilet Toilet Toilet # Voids 1 3 - Exam Constitutional: No acute distress, conversant, pleasant Eyes: Anicteric sclerae, moist conjunctiva, no lid-lag, PERRLA ENMT: NC/AT,Oropharynx clear, no erythema, exudates Neck:Supple, FROM, no masses, or JVD, No carotid bruits; No thyromegaly Lungs: Clear to auscultation, Clear to percussion, Normal respiratory effort, no accessory muscle use Cardiovascular: Heart regular in rate and rhythm, No murmurs, gallops, or rubs no peripheral edema Abdominal: Soft Nontender, nom distended, no guarding, no rebound or rigidity, Normoactive bowel sounds No hepatomegaly, No splenomegaly, No palpable mass No abdominal wall hernia noted Skin: Normal temperature, tone, texture, turgor, No induration No subcutaneous nodules, No rash, lesions, No ulcers Extremities:No digital cyanosis No clubbing, Pedal pulses intact and symmetrical Radial pulses intact and symmetrical Normal gait and station, No calf tenderness Psychiatric: Alert and oriented to person, place and time, Appropriate affect Intact judgement Neuro: Muscles Strength 5/5 in all 4 extremities, Sensation to light touch grossly present throughout, Cranial nerves II-XII grossly intact. No focal sensory deficits - Labs CBC & Chem 7: 04/05/18 05:53 04/05/18 05:53 Labs: Abnormal Lab Results - Last 24 Hours (Table) 04/04/18 04/04/18 04/04/18 Range/Units 14:59 16:56 20:55 BUN (7-17) mg/dL POC Glucose (mg/dL) 223 H (75-99) mg/dL Total Creatine Kinase 145 H 147 H (30-135) U/L CK-MB (CK-2) 3.5 H* 3.1 H* (0.0-2.4) ng/mL Troponin I 0.050 H* 0.059 H* (0.000-0.034) ng/mL Triglycerides (<150) mg/dL HDL Cholesterol (40-60) mg/dL 04/04/18 04/05/18 04/05/18 Range/Units 21:04 05:53 05:53 BUN 19 H (7-17) mg/dL POC Glucose (mg/dL) 228 H (75-99) mg/dL Total Creatine Kinase (30-135) U/L CK-MB (CK-2) (0.0-2.4) ng/mL Troponin I 0.055 H* (0.000-0.034) ng/mL Triglycerides 381 H (<150) mg/dL HDL Cholesterol 32 L (40-60) mg/dL 04/05/18 Range/Units 11:35 BUN (7-17) mg/dL POC Glucose (mg/dL) 242 H (75-99) mg/dL Total Creatine Kinase (30-135) U/L CK-MB (CK-2) (0.0-2.4) ng/mL Troponin I (0.000-0.034) ng/mL Triglycerides (<150) mg/dL HDL Cholesterol (40-60) mg/dL Assessment and Plan (1) Acute respiratory failure with hypoxia Narrative/Plan: * Now resolved patient with good saturations on room air * Likely secondary to underlying ischemic cardiomyopathy and systolic CHF Current Visit: Yes Status: Resolved Code(s): J96.01 - ACUTE RESPIRATORY FAILURE WITH HYPOXIA SNOMED Code(s): 36157182 (2) Hypertensive emergency Narrative/Plan: * Not resolved patient's blood pressure under better control * Continue current regimen on lisinopril and Coreg and Lasix Current Visit: Yes Status: Resolved Code(s): I16.1 - HYPERTENSIVE EMERGENCY SNOMED Code(s): 336993359122973 (3) Type 2 diabetes mellitus with hyperglycemia Narrative/Plan: * A1c pending * continue home insulin regimen Levemir 76 subcu daily at bedtime with prandial insulin 20 units 3 times a day continue with correctional scale coverage Current Visit: Yes Status: Acute Code(s): E11.65 - TYPE 2 DIABETES MELLITUS WITH HYPERGLYCEMIA SNOMED Code(s): 509772995004271 (4) Hyperlipidemia Narrative/Plan: * Patient noted to have hyperlipidemia but has an ALLERGY listed to statins Current Visit: Yes Status: Acute Code(s): E78.5 - HYPERLIPIDEMIA, UNSPECIFIED SNOMED Code(s): 01652571 (5) Systolic CHF, acute on chronic Narrative/Plan: * Severe cardiomyopathy ejection fraction of 25-30% * Patient has biventricular pacer with defibrillator * Continue to optimize medical therapy continue with Coreg and lisinopril Current Visit: Yes Status: Acute Code(s): I50.23 - ACUTE ON CHRONIC SYSTOLIC (CONGESTIVE) HEART FAILURE SNOMED Code(s): 842759505 (6) Ischemic cardiomyopathy Narrative/Plan: * Continue with antiplatelet therapy * Troponins trending up to 0.059 likely type II demand ischemia Current Visit: Yes Status: Acute Code(s): I25.5 - ISCHEMIC CARDIOMYOPATHY SNOMED Code(s): 215933112 Plan: Disposition * We'll continue to optimize medical therapy monitor the patient for another 24 hours and if she is chest pain-free we'll discharge her home safely * Anticipate discharge in 1-2 days
[2018-04-05 14:02] VITALS: BMI 33.1
--- NOTE | 2018-04-05 14:54 | P.PN ---
Subjective Progress Note Date: 04/05/18 This is a 62-year-old female with history of ischemic heart disease with previous bypass surgery, probable cardiomyopathy with history of biventricular pacemaker implantation with a defibrillator, who came to [place] to the [facility] on jury duty. Apparently patient became short of breath and went to sit in the library. This shortness of breath did not improve and patient called paramedics and came to the hospital. Patient was extremely short of breath on arrival. Chest x-ray showed some chronic changes. Her BNP is not elevated. However, patient responded well to IV Lasix. Patient blood pressure was also very high. IV nitroglycerin dropped her blood pressure to normal range. Currently, patient is off nitroglycerin. She seemed to be comfortable, sleeping flat in bed. No evidence of JVD. Lungs appeared to be clear. Troponins 0.014, 0.05, 0.05, 0.05. She denies having any chest discomfort today and her breathing overall is stable. Blood pressure 120/60 with a heart rate in the 80s, 92% on room air. We will continue to monitor the patient, she wishes to follow-up with her mat linker on discharge, we'll plan on sending her home in 24 hours if stable Objective - Vital Signs Vital signs: Vital Signs Temp 97.3 F L 04/05/18 08:00 Pulse 80 04/05/18 12:00 Resp 18 04/05/18 12:00 BP 120/59 04/05/18 08:00 Pulse Ox 92 L 04/05/18 08:00 Intake & Output 04/04/18 04/05/18 04/05/18 18:59 06:59 18:59 Intake Total 200 550 180 Output Total 200 Balance 0 550 180 Weight 81.647 kg 79.5 kg 79.5 kg Intake: Oral 200 550 180 Output: Urine 200 Other: Voiding Method Toilet Toilet Toilet # Voids 1 3 - Exam GENERAL EXAM: Patient is alert and oriented and doesn't appear to be in any acute distress HEENT: Normocephalic. Normal reaction of pupils, equal size, normal range of extraocular motion. No erythema or exudates in the throat. NECK: No masses, no nuchal rigidity. CHEST: No chest wall deformity. LUNGS: Equal air entry with no crackles or wheeze. HEART: S1 and S2 normal with no audible mumurs or gallops. Regular rhythm, femorals equal on both sides.. ABDOMEN: No hepatosplenomegaly, normal bowel sounds, no guarding or rigidity. SKIN: No rashes CENTRAL NERVOUS SYSTEM: No focal deficits. EXTREMITIES: No cyanosis, clubbing or edema. - Labs CBC & Chem 7: 04/05/18 05:53 04/05/18 05:53 Labs: Abnormal Lab Results - Last 24 Hours (Table) 04/04/18 04/04/18 04/04/18 Range/Units 14:59 16:56 20:55 BUN (7-17) mg/dL POC Glucose (mg/dL) 223 H (75-99) mg/dL Total Creatine Kinase 145 H 147 H (30-135) U/L CK-MB (CK-2) 3.5 H* 3.1 H* (0.0-2.4) ng/mL Troponin I 0.050 H* 0.059 H* (0.000-0.034) ng/mL Triglycerides (<150) mg/dL HDL Cholesterol (40-60) mg/dL 04/04/18 04/05/18 04/05/18 Range/Units 21:04 05:53 05:53 BUN 19 H (7-17) mg/dL POC Glucose (mg/dL) 228 H (75-99) mg/dL Total Creatine Kinase (30-135) U/L CK-MB (CK-2) (0.0-2.4) ng/mL Troponin I 0.055 H* (0.000-0.034) ng/mL Triglycerides 381 H (<150) mg/dL HDL Cholesterol 32 L (40-60) mg/dL 04/05/18 Range/Units 11:35 BUN (7-17) mg/dL POC Glucose (mg/dL) 242 H (75-99) mg/dL Total Creatine Kinase (30-135) U/L CK-MB (CK-2) (0.0-2.4) ng/mL Troponin I (0.000-0.034) ng/mL Triglycerides (<150) mg/dL HDL Cholesterol (40-60) mg/dL Assessment and Plan Plan: Assessment and plan #1 systolic congestive heart failure acute on chronic #2 ischemic cardiomyopathy #3 history of IV AICD #4 hyperlipidemia #5 hypertension #6 paroxysmal atrial fibrillation #7 diabetes #8 coronary disease with prior bypass surgery #9 abnormal troponins, not consistent with acute coronary syndrome, likely secondary to supply and demand mismatch. Plan Echocardiogram with Doppler study revealed an ejection fraction of 25-30%. We will continue to monitor the patient for 24 hours, if stable discharge the morning and arrange follow-up with her mat linker as an outpatient. DNP note has been reviewed, I agree with a documented findings and plan of care. Patient was seen and examined.
[2018-04-05 15:58] LABS: Hemoglobin A1C 7.8 % (4.0-6.0)
[2018-04-05 17:07] LABS: Glucose,Whole Blood 145 mg/dL (75-99)
[2018-04-05] MEDS ORDERED: WARFARIN 5 MG TAB PO SCH (18:00)
[2018-04-05 20:51] LABS: Glucose,Whole Blood 197 mg/dL (75-99)
[2018-04-05] MEDS: INSULIN DETEMIR 100 UNIT/ML 10 ML VIAL SQ SCH (21:08)
[2018-04-06 06:06] LABS: Glucose,Whole Blood 81 mg/dL (75-99)
[2018-04-06] MEDS: INSULIN ASPART 100 UNIT/ML 1 ML 10 ML VIAL SQ SCH ×2 (06:11→11:51)
[2018-04-06] MEDS: CARVEDILOL 12.5 MG TAB PO SCH (06:12)
[2018-04-06] MEDS: INSULIN NPH 300 UNIT/3 ML VIAL SQ SCH ×2 (07:04→11:51)
[2018-04-06] MEDS: ASPIRIN 325 MG TAB PO SCH (09:14)
[2018-04-06] MEDS: LISINOPRIL 2.5 MG TAB PO SCH (09:14)
[2018-04-06] MEDS: MULTIVITAMINS, THERA 1 EACH TAB PO SCH (09:14)
[2018-04-06] MEDS: DIGOXIN 125 MCG TAB PO SCH (09:14)
[2018-04-06] MEDS: FUROSEMIDE 40 MG TAB PO SCH (09:14)
[2018-04-06] MEDS: POTASSIUM CHLORIDE ER 20 MEQ TAB.ER PO SCH (09:14)
[2018-04-06 09:56] VITALS: RESP 18
[2018-04-06 11:47] LABS: Glucose,Whole Blood 184 mg/dL (75-99)
[2018-04-06 12:56] VITALS: BP 93/42; PULSE 68; TEMP 97.7
--- NOTE | 2018-04-06 13:55 | P.PN ---
Subjective Progress Note Date: 04/06/18 This is a 62-year-old female with history of ischemic heart disease with previous bypass surgery, probable cardiomyopathy with history of biventricular pacemaker implantation with a defibrillator, who came to [place] to the [facility] on jury duty. Apparently patient became short of breath and went to sit in the library. This shortness of breath did not improve and patient called paramedics and came to the hospital. Patient was extremely short of breath on arrival. Chest x-ray showed some chronic changes. Her BNP is not elevated. However, patient responded well to IV Lasix. Patient blood pressure was also very high. IV nitroglycerin dropped her blood pressure to normal range. Currently, patient is off nitroglycerin. She seemed to be comfortable, sleeping flat in bed. No evidence of JVD. Lungs appeared to be clear. Troponins 0.014, 0.05, 0.05, 0.05. She denies having any chest discomfort today and her breathing overall is stable. Blood pressure 120/60 with a heart rate in the 80s, 92% on room air. We will continue to monitor the patient, she wishes to follow-up with her vending machine assembler on discharge, we'll plan on sending her home in 24 hours if stable. 04/06/2018 Patient seen and examined this morning, feels well, denies any chest pain, breathing overall is stable. She will be discharged home today to follow-up with her vending machine assembler in the next one week. Objective - Vital Signs Vital signs: Vital Signs Temp 97.7 F 04/06/18 12:00 Pulse 68 04/06/18 12:00 Resp 18 04/06/18 12:00 BP 93/42 04/06/18 12:00 Pulse Ox 94 L 04/06/18 12:00 Intake & Output 04/05/18 04/06/18 04/06/18 18:59 06:59 18:59 Intake Total 180 300 236 Balance 180 300 236 Weight 79.5 kg 80.2 kg Intake: Oral 180 300 236 Other: Voiding Method Toilet Toilet Toilet # Voids 4 1 - Exam GENERAL EXAM: Patient is alert and oriented and doesn't appear to be in any acute distress HEENT: Normocephalic. Normal reaction of pupils, equal size, normal range of extraocular motion. No erythema or exudates in the throat. NECK: No masses, no nuchal rigidity. CHEST: No chest wall deformity. LUNGS: Equal air entry with no crackles or wheeze. HEART: S1 and S2 normal with no audible mumurs or gallops. Regular rhythm, femorals equal on both sides.. ABDOMEN: No hepatosplenomegaly, normal bowel sounds, no guarding or rigidity. SKIN: No rashes CENTRAL NERVOUS SYSTEM: No focal deficits. EXTREMITIES: No cyanosis, clubbing or edema. - Labs CBC & Chem 7: 04/05/18 05:53 04/05/18 05:53 Labs: Abnormal Lab Results - Last 24 Hours (Table) 04/04/18 04/05/18 04/05/18 Range/Units 09:15 17:04 20:49 POC Glucose (mg/dL) 145 H 197 H (75-99) mg/dL Hemoglobin A1c 7.8 H (4.0-6.0) % 04/06/18 Range/Units 11:45 POC Glucose (mg/dL) 184 H (75-99) mg/dL Hemoglobin A1c (4.0-6.0) % Microbiology - Last 24 Hours (Table) 04/05/18 05:53 Blood Culture - Preliminary Blood No Growth after 24 hours Assessment and Plan Plan: Assessment and plan #1 systolic congestive heart failure acute on chronic #2 ischemic cardiomyopathy #3 history of IV AICD #4 hyperlipidemia #5 hypertension #6 paroxysmal atrial fibrillation #7 diabetes #8 coronary disease with prior bypass surgery #9 abnormal troponins, not consistent with acute coronary syndrome, likely secondary to supply and demand mismatch. Plan Echocardiogram with Doppler study revealed an ejection fraction of 25-30%. Patient may be able to be discharged home today. She can follow-up with her vending machine assembler post discharge. DNP note has been reviewed, I agree with a documented findings and plan of care. Patient was seen and examined.
--- NOTE | 2018-04-06 14:07 | P.DS ---
Providers Date of admission: 04/04/18 11:10 Expected date of discharge: 04/06/18 Attending physician: Jose Alberto Dong MD Consults: 04/04/18 09:42 Consult Physician Routine Consulting Provider: Ivett Page Consult Reason/Comments: chf exacerbation Do you want consulting provider notified?: Yes Primary care physician: Stated None - Discharge Diagnosis(es) (1) Acute respiratory failure with hypoxia Current Visit: Yes Status: Resolved (2) Hypertensive emergency Current Visit: Yes Status: Resolved (3) Type 2 diabetes mellitus with hyperglycemia Current Visit: Yes Status: Acute (4) Hyperlipidemia Current Visit: Yes Status: Acute (5) Systolic CHF, acute on chronic Current Visit: Yes Status: Acute (6) Ischemic cardiomyopathy Current Visit: Yes Status: Acute Hospital Course: The patient is a 62-year-old female with history of coronary artery disease with previous bypass surgery and a history of ischemic cardiac myopathy with a biventricular pacer and defibrillator who presented to the ER with dyspnea is admitted for acute respiratory failure with hypoxia secondary to likely acute systolic CHF exacerbation, her NT proBNP was mildly elevated at 448 , chest x-ray only showed chronic changes without evidence of acute pulmonary disease despite her history of flash pulmonary edema. She denied any chest pain but was noted to be in hypertensive urgency on arrival via EMS, she was started on nitroglycerin which normalized her blood pressure. EKG showed evidence of biventricular paced rhythm, The patient was noted to have elevation of troponin as high as 0.059. Echocardiogram done here confirmed a systolic CHF with ejection fraction of 25-30%. The patient was seen by cardiology determined that the elevated troponin was secondary to likely demand ischemic type 2 event. Her troponin trended down and she was subsequently discharged home in stable condition being chest pain or dyspnea free over the last 24 hours. This discharge process took approximately 35 minutes Constitutional: No acute distress, conversant, pleasant Eyes: Anicteric sclerae, moist conjunctiva, no lid-lag, PERRLA ENMT: NC/AT,Oropharynx clear, no erythema, exudates Neck:Supple, FROM, no masses, or JVD, No carotid bruits; No thyromegaly Lungs: Clear to auscultation, Clear to percussion, Normal respiratory effort, no accessory muscle use Cardiovascular: Heart regular in rate and rhythm, No murmurs, gallops, or rubs no peripheral edema Abdominal: Soft Nontender, nom distended, no guarding, no rebound or rigidity, Normoactive bowel sounds No hepatomegaly, No splenomegaly, No palpable mass No abdominal wall hernia noted Skin: Normal temperature, tone, texture, turgor, No induration No subcutaneous nodules, No rash, lesions, No ulcers Extremities:No digital cyanosis No clubbing, Pedal pulses intact and symmetrical Radial pulses intact and symmetrical Normal gait and station, No calf tenderness Psychiatric: Alert and oriented to person, place and time, Appropriate affect Intact judgement Neuro: Muscles Strength 5/5 in all 4 extremities, Sensation to light touch grossly present throughout, Cranial nerves II-XII grossly intact. No focal sensory deficits Patient Condition at Discharge: Good Plan - Discharge Summary Discharge Rx Participant: No New Discharge Prescriptions: Continue Warfarin [Coumadin] 7.5 mg PO MOTH Warfarin [Coumadin] 5 mg PO SUTUWEFRSA Potassium Chloride ER [K-Dur 20] 20 meq PO DAILY Kila-3 Fatty Acids [Kila-3] 1,000 mg PO BID Multivitamins, Thera [Multivitamin (formulary)] 1 tab PO DAILY Lisinopril [Zestril] 2.5 mg PO DAILY Insulin NPH Human Isophane [humuLIN N Kwikpen] 20 unit SQ AC-TID Insulin Detemir [Levemir Flextouch] 76 units SQ HS Furosemide [Lasix] 40 mg PO DAILY Digoxin [Lanoxin] 125 mcg PO DAILY Carvedilol [Coreg] 12.5 mg PO BID Discharge Medication List Carvedilol [Coreg] 12.5 mg PO BID 04/04/18 [History] Digoxin [Lanoxin] 125 mcg PO DAILY 04/04/18 [History] Furosemide [Lasix] 40 mg PO DAILY 04/04/18 [History] Insulin Detemir [Levemir Flextouch] 76 units SQ HS 04/04/18 [History] Insulin NPH Human Isophane [humuLIN N Kwikpen] 20 unit SQ AC-TID 04/04/18 [ History] Lisinopril [Zestril] 2.5 mg PO DAILY 04/04/18 [History] Multivitamins, Thera [Multivitamin (formulary)] 1 tab PO DAILY 04/04/18 [History ] Kila-3 Fatty Acids [Kila-3] 1,000 mg PO BID 04/04/18 [History] Potassium Chloride ER [K-Dur 20] 20 meq PO DAILY 04/04/18 [History] Warfarin [Coumadin] 5 mg PO SUTUWEFRSA 04/04/18 [History] Warfarin [Coumadin] 7.5 mg PO MOTH 04/04/18 [History] Follow up Appointment(s)/Referral(s): None,Stated [Primary Care Provider] - 1-2 days
[2018-04-07] MEDS ORDERED: LISINOPRIL 5 MG TAB PO SCH (09:00)
== END 2018-04-06 16:57 | disposition home or self-care (01) | DRG 291 ==
LOC: EC 09:09 → 6SEL 11:10
PROVIDERS: ADMIT Family Medicine; ATTEND Family Medicine
DX: I11.0 Hypertensive heart disease with heart failure (principal); J96.01 Acute respiratory failure with hypoxia; E87.2 Acidosis; I16.1 Hypertensive emergency; I24.8 Other forms of acute ischemic heart disease; I50.23 Acute on chronic systolic (congestive) heart failure; D72.829 Elevated white blood cell count, unspecified; E11.65 Type 2 diabetes mellitus with hyperglycemia; E78.5 Hyperlipidemia, unspecified; I25.10 Atherosclerotic heart disease of native coronary artery without angina pectoris; I25.5 Ischemic cardiomyopathy; I48.0 Paroxysmal atrial fibrillation; Z96.1 Presence of intraocular lens; E11.40 Type 2 diabetes mellitus with diabetic neuropathy, unspecified; M19.042 Primary osteoarthritis, left hand; M19.041 Primary osteoarthritis, right hand; M19.032 Primary osteoarthritis, left wrist; M19.031 Primary osteoarthritis, right wrist; M16.11 Unilateral primary osteoarthritis, right hip; Z98.51 Tubal ligation status; Z87.81 Personal history of (healed) traumatic fracture; Z95.1 Presence of aortocoronary bypass graft; Z87.891 Personal history of nicotine dependence; Z79.899 Other long term (current) drug therapy; Z79.4 Long term (current) use of insulin; Z79.01 Long term (current) use of anticoagulants; I25.2 Old myocardial infarction; Z82.61 Family history of arthritis; Z95.810 Presence of automatic (implantable) cardiac defibrillator; Z98.42 Cataract extraction status, left eye; Z98.41 Cataract extraction status, right eye; Z88.8 Allergy status to other drugs, medicaments and biological substances
CPT/HCPCS: 36415; 71045; 80048; 80053; 80061; 81003; 82550; 82553; 82803; 83036; 83735; 83880; 84484; 85025; 85379; 85610; 85730; 87040; 93005; 93306; 94660; 96365; 96375; 99285